=== PATIENT | female | born 1940 | race Caucasian/White ===

== ENCOUNTER 2016-11-14 12:20 | Inpatient (IN) | payer MEDICARE, OTHER ==
[~2016-11-14] VITALS: Ht 165.1 cm; Wt 75.7 kg
[2016-11-14 12:58] LABS: BASOPHILS # (AUTO) 0.1 /CMM (0.0-0.2); BASOPHILS % (AUTO) 0.5 % (0.0-2.0); EOSINOPHILS # (AUTO) 0.3 /CMM (0.0-0.7); EOSINOPHILS % (AUTO) 2.3 % (0.0-6.0); HEMATOCRIT 38 % (33-45); HEMOGLOBIN 12.9 g/dL (11.5-14.8); LYMPHOCYTES # (AUTO) 1.9 /CMM (0.8-4.8); LYMPHOCYTES % (AUTO) 16.4 % (20.0-44.0); MEAN CORPUSCULAR HEMOGLOBIN 31 PG (26.0-33.0); MEAN CORPUSCULAR HGB CONC 34 g/dl (31.0-36.0); MEAN CORPUSCULAR VOLUME 92 fL (82-100); MONOCYTES # (AUTO) 0.6 /CMM (0.1-1.30); MONOCYTES % (AUTO) 5.7 % (2.0-12.0); NEUTROPHILS # (AUTO) 8.4 /CMM (1.8-8.9); NEUTROPHILS % (AUTO) 75.1 % (43.0-81.0); PLATELET COUNT (AUTO) 334 /CMM (150-450); RDW COEFFICIENT OF VARIATION 12.9 (11.5-15.0); RED BLOOD CELL COUNT(AUTO) 4.12 MIL/uL (4.0-5.2); WHITE BLOOD COUNT (AUTO) 11.3 K/uL (4.3-11.0)
[2016-11-14 13:01] LABS: APPEARANCE,URINE CLEAR (CLEAR); BILIRUBIN,URINE NEGATIVE (NEGATIVE); BLOOD, URINE NEGATIVE Ery/uL (NEGATIVE); COLOR,URINE YELLOW (YELLOW); KETONES,URINE NEGATIVE (NEGATIVE); LEUKOCYTE ESTERASE ,URINE NEGATIVE (NEGATIVE); NITRITE, URINE NEGATIVE (NEGATIVE); PROTEIN,URINE NEGATIVE (NEGATIVE); UGLUCOSE NEGATIVE (NEGATIVE); UROBILINOGEN,URINE 0.2 EU/dL (0.2)
[2016-11-14 13:08] LABS: CALCIUM, SERUM 8.6 mg/dL (8.5-10.1); CARBON DIOXIDE 25 mmol/L (21-32); CHLORIDE 104 mmol/L (98-107); CREATININE 1.8 mg/dL (0.6-1.3); GLUCOSE 99 mg/dL (74-106); SODIUM SERUM 139 mmol/L (136-145); UREA NITROGEN, BLOOD 45 mg/dL (7-18)
[2016-11-14 13:11] LABS: ALCOHOL, BLOOD < 3 mg/dL (0-0)
--- NOTE | 2016-11-14 14:40 | NUR ---
RN RECEIVED PT FORM ER, AO X4 VS STABLE PT IS DENYING SI/HI/AVH, PT REFUSING SKIN ASSESSMENT, NOTICED R KNEE SCABS NOTED PT REFUSED PHOTO, PT IS IN THE [place] ROOM UNDER SUPERVISION, PT DENIES ANY PAIN OR DISCOMFORT AT THIS TIME, WILL ASSESS PT AND MEET PT NEEDS.
--- NOTE | 2016-11-14 15:06 | NUR ---
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
[2016-11-14] MEDS ORDERED: ESCI5TAB PO (15:47)
[2016-11-14] MEDS ORDERED: LURA40TA PO (15:47)
[2016-11-14] MEDS ORDERED: TRAZ-144 PO (15:47)
[2016-11-14 16:00] VITALS: BP 137/80
[2016-11-14] MEDS ORDERED: MAG HYDROX/AL HYDROX/SIMETH 30 ML UDC PO PRN (16:00)
[2016-11-14] MEDS ORDERED: MAGNESIUM HYDROXIDE 30 ML UDC PO PRN (16:00)
--- NOTE | 2016-11-14 17:19 | NUR ---
RN Dr. Douglas and Mike schroeder aware of pt admition no new orders, pt complain is unable to sleep at nights.
--- NOTE | 2016-11-14 18:50 | NUR ---
CUSTOMER SERVICE SALES CONSULTANT PAGED DR. HERNANDEZ 2ND TIME AWAITING FOR CALL BACK WILL ENDORSE TO PM NURSE TO FOLLOW UP REGARDING ORDERS FOR ADMITION
[2016-11-14] MEDS ORDERED: GUAIFENESIN/D-METHORPHAN HB 5 ML UDC PO PRN (21:00)
[2016-11-14] MEDS: TEMAZEPAM 7.5 MG CAPSULE PO PRN (21:00)
--- NOTE | 2016-11-14 21:00 | NUR ---
GPS RN NOTE: PATIENT WAS UPSET AND DEMANDING ABOUT HER MEDICATIONS. PATIENT ALSO C/O NOT GETTING SLEEP FOR THE LAST 2 DAYS. PATIENT WAS REQUESTING RESTORIL 60MG,TRAZODONE 100MG, COUGH MEDICATIONS, VITAMIN C AND MULTIVITAMIN. EXPLAINED TO THE PATIENT THAT THE RESTORIL ORDER IS 7.5MG AND SHE NEEDS TO BE SEEN BY HER PSYCHIATRIST FIRST AND SIGNED A CONSENT BEFORE GETTING HER PSYCHOTROPICS. NOTIFIED DR. CESAR WITH ORDERS OF VITAMIN C, MULTIVITAMIN AND COUGH MEDICINE GIVEN NOTED AND CARRIED OUT. NOTIFIED THE PATIENT ABOUT HER REQUEST OF COUGH MEDICINE, VIT AND MVT IS BEING GRANTED BY THE MD AND THE PATIENT DENIES REQUESTING COUGH MEDICINE. PATIENT NOTED TO BE MANIPULATIVE AND FOCUSED ON THE MEDICATIONS. REDIRECTED THE PATIENT. EXPLANATION PROVIDED TO THE PATIENT. WILL CONTINUE TO MONITOR [id number] FOR SAFETY
[2016-11-14 21:49] VITALS: BP 149/85
[2016-11-14] MEDS: clonazePAM 0.5 MG TABLET PO PRN (22:03)
[2016-11-14] MEDS: ACETAMINOPHEN 325 MG TABLET PO PRN (22:04)
[2016-11-14] MEDS ORDERED: hydrALAZINE HCL 25 MG TABLET PO PRN (23:30)
[2016-11-15] MEDS ORDERED: DONE10TA44 (05:30)
[2016-11-15] MEDS ORDERED: SIMV40TA5 (05:30)
[2016-11-15] MEDS ORDERED: CARV3.122 (05:30)
[2016-11-15] MEDS ORDERED: AMLO10TA2 (05:30)
[2016-11-15] MEDS ORDERED: SOLI10TA (05:30)
[2016-11-15 08:00] VITALS: BP 141/98
[2016-11-15] MEDS ORDERED: SOLIFENACIN SUCCINATE 5 MG TABLET PO SCH (09:00)
[2016-11-15] MEDS ORDERED: SIMVASTATIN 40 MG TABLET PO SCH (09:00)
[2016-11-15] MEDS: ASCORBIC ACID 500 MG TABLET PO SCH (09:04)
[2016-11-15] MEDS: MULTIVITAMINS,THERAGRAN 1 UDTAB TABLET PO SCH (09:04)
[2016-11-15] MEDS: AMLODIPINE BESYLATE 10 MG TABLET PO SCH (09:26)
[2016-11-15] MEDS: CARVEDILOL 3.125 MG TABLET PO SCH ×2 (09:30→17:17)
[2016-11-15 16:00] VITALS: BP 132/72
[2016-11-15] MEDS: OXYBUTYNIN CHLORIDE 5 MG TABLET PO SCH (17:17)
[2016-11-15] MEDS: TRAZODONE 50 MG TABLET PO SCH (17:38)
[2016-11-15] MEDS: QUETIAPINE FUMARATE 25 MG TABLET PO SCH (17:38)
[2016-11-15] MEDS: ESCITALOPRAM OXALATE (10 MG) 10 MG TABLET PO SCH (18:35)
[2016-11-15 20:00] VITALS: BP 148/80
[2016-11-15] MEDS: SIMVASTATIN 20 MG TABLET PO SCH (21:14)
[2016-11-15] MEDS: MUPIROCIN OINT 2% 22 GM TUBE SCH (21:16)
[2016-11-15] MEDS ORDERED: SIMVASTATIN 10 MG TABLET PO SCH (22:00)
[2016-11-16 08:00] VITALS: BP 111/60
[2016-11-16] MEDS: CARVEDILOL 3.125 MG TABLET PO SCH ×2 (09:00→17:09)
[2016-11-16] MEDS: AMLODIPINE BESYLATE 10 MG TABLET PO SCH (09:00)
[2016-11-16] MEDS: MUPIROCIN OINT 2% 22 GM TUBE SCH ×2 (09:22→21:40)
[2016-11-16] MEDS: OXYBUTYNIN CHLORIDE 5 MG TABLET PO SCH ×2 (09:23→17:09)
[2016-11-16] MEDS: MULTIVITAMINS,THERAGRAN 1 UDTAB TABLET PO SCH (09:24)
[2016-11-16] MEDS: QUETIAPINE FUMARATE 25 MG TABLET PO SCH ×3 (09:24→21:40)
[2016-11-16] MEDS: ASCORBIC ACID 500 MG TABLET PO SCH (09:24)
[2016-11-16] MEDS: ESCITALOPRAM OXALATE (10 MG) 10 MG TABLET PO SCH (09:24)
--- NOTE | 2016-11-16 15:48 | NUR ---
Initial discharge plan: Pt. reportedly is a resident at a prison [address] [address]. Unable to verify that information at this time, but it was reported by SABRINA from [facility] intake department that pt. is a member of [facility] [phone]. DEVIN will follow up with Farnaz on Saturday and will update. DEVIN will discuss the case with the psychiatrist and will help form safe and proper discharge.
[2016-11-16 16:00] VITALS: BP 127/70
[2016-11-16] MEDS: TRAZODONE 50 MG TABLET PO SCH (17:09)
--- NOTE | 2016-11-16 19:15 | NUR ---
RN NOTES RECEIVED PATIENT IN THE ACTIVITY ROOM. A/O X2. NO SIGNS OF DISTRESS OR DISCOMFORT. BREATHING EVEN AND UNLABORED. DISORGANIZED AND DEMANDING. DENIES SI OR HI. AT THIS TIME. PT.ON ISOLATION FOR MRSA NARES. REFUSES TO PUT ON MASK WHILE IN ACTIVITY ROOM. WILL CONTINUE TO MONITOR Q 15MIN FOR SAFETY AND BEHAVIOR.
[2016-11-16 20:51] VITALS: BP 123/70
[2016-11-16] MEDS: SIMVASTATIN 20 MG TABLET PO SCH (21:40)
[2016-11-16] MEDS: ACETAMINOPHEN 325 MG TABLET PO PRN (21:52)
[2016-11-16] MEDS: TEMAZEPAM 7.5 MG CAPSULE PO PRN (21:53)
--- NOTE | 2016-11-16 21:53 | NUR ---
RN NOTES ADMINISTERED RESTORIL 7.5 MG ORDERED FOR INSOMNIA AT PATIENT REQUEST AND TYLENOL 650 MG ORDERED FOR PAIN IN HAND. WILL CONTINUE TO MONITOR.
--- NOTE | 2016-11-17 07:00 | NUR ---
RN NOTES PATIENT RESTING IN BED. NO SIGNS OF DISTRESS OR DISCOMFORT. NO SIGNIFICANT CHANGES THROUGH THE NIGHT. WILL ENDORSE TO AM SHIFT THEA.
[2016-11-17] MEDS: OXYBUTYNIN CHLORIDE 5 MG TABLET PO SCH ×2 (08:37→16:18)
[2016-11-17] MEDS: QUETIAPINE FUMARATE 25 MG TABLET PO SCH ×3 (08:38→21:16)
[2016-11-17] MEDS: MULTIVITAMINS,THERAGRAN 1 UDTAB TABLET PO SCH (08:38)
[2016-11-17] MEDS: ESCITALOPRAM OXALATE (10 MG) 10 MG TABLET PO SCH (08:38)
[2016-11-17] MEDS: ASCORBIC ACID 500 MG TABLET PO SCH (08:38)
[2016-11-17] MEDS: AMLODIPINE BESYLATE 10 MG TABLET PO SCH (08:46)
[2016-11-17] MEDS: MUPIROCIN OINT 2% 22 GM TUBE SCH ×2 (08:46→21:16)
[2016-11-17] MEDS: CARVEDILOL 3.125 MG TABLET PO SCH ×2 (08:46→16:19)
[2016-11-17 15:43] LABS: APPEARANCE,URINE CLEAR (CLEAR); BILIRUBIN,URINE NEGATIVE (NEGATIVE); BLOOD, URINE NEGATIVE Ery/uL (NEGATIVE); COLOR,URINE YELLOW (YELLOW); KETONES,URINE NEGATIVE (NEGATIVE); LEUKOCYTE ESTERASE ,URINE NEGATIVE (NEGATIVE); NITRITE, URINE NEGATIVE (NEGATIVE); PROTEIN,URINE NEGATIVE (NEGATIVE); UGLUCOSE NEGATIVE (NEGATIVE); UROBILINOGEN,URINE 0.2 EU/dL (0.2)
[2016-11-17 15:53] LABS: URINE TOTAL PROTEIN 6.4 mg/dL (0-11.9)
[2016-11-17 16:00] VITALS: BP 130/76
[2016-11-17 17:30] LABS: EOSINOPHIL,URINE None Seen
[2016-11-17] MEDS: TRAZODONE 50 MG TABLET PO SCH (17:33)
[2016-11-17 20:00] VITALS: BP 111/61
[2016-11-17] MEDS: SIMVASTATIN 20 MG TABLET PO SCH (21:16)
[2016-11-17] MEDS: TEMAZEPAM 7.5 MG CAPSULE PO PRN (21:17)
[2016-11-18 08:00] VITALS: BP 141/78
[2016-11-18] MEDS: MULTIVITAMINS,THERAGRAN 1 UDTAB TABLET PO SCH (08:34)
[2016-11-18] MEDS: QUETIAPINE FUMARATE 25 MG TABLET PO SCH ×3 (08:34→21:16)
[2016-11-18] MEDS: OXYBUTYNIN CHLORIDE 5 MG TABLET PO SCH ×2 (08:34→16:43)
[2016-11-18] MEDS: AMLODIPINE BESYLATE 10 MG TABLET PO SCH (08:34)
[2016-11-18] MEDS: ASCORBIC ACID 500 MG TABLET PO SCH (08:34)
[2016-11-18] MEDS: CARVEDILOL 3.125 MG TABLET PO SCH ×2 (08:34→16:43)
[2016-11-18] MEDS: ESCITALOPRAM OXALATE (10 MG) 10 MG TABLET PO SCH (08:34)
[2016-11-18] MEDS: MUPIROCIN OINT 2% 22 GM TUBE SCH ×2 (08:35→21:15)
[2016-11-18 11:29] LABS: BASOPHILS % (AUTO) 0.5 % (0.0-2.0); EOSINOPHILS # (AUTO) 0.4 /CMM (0.0-0.7); EOSINOPHILS % (AUTO) 4.5 % (0.0-6.0); HEMATOCRIT 37 % (33-45); HEMOGLOBIN 12.6 g/dL (11.5-14.8); LYMPHOCYTES # (AUTO) 1.5 /CMM (0.8-4.8); LYMPHOCYTES % (AUTO) 18.9 % (20.0-44.0); MEAN CORPUSCULAR HEMOGLOBIN 32 PG (26.0-33.0); MEAN CORPUSCULAR HGB CONC 34 g/dl (31.0-36.0); MEAN CORPUSCULAR VOLUME 93 fL (82-100); MONOCYTES # (AUTO) 0.8 /CMM (0.1-1.30); MONOCYTES % (AUTO) 9.6 % (2.0-12.0); NEUTROPHILS # (AUTO) 5.3 /CMM (1.8-8.9); NEUTROPHILS % (AUTO) 66.5 % (43.0-81.0); PLATELET COUNT (AUTO) 279 /CMM (150-450); RDW COEFFICIENT OF VARIATION 13.6 (11.5-15.0); RED BLOOD CELL COUNT(AUTO) 3.95 MIL/uL (4.0-5.2); WHITE BLOOD COUNT (AUTO) 7.9 K/uL (4.3-11.0)
[2016-11-18 11:59] LABS: ALANINE AMINOTRANSFERASE 24 U/L (12-78); ALBUMIN 3.5 g/dL (3.4-5.0); ALKALINE PHOSPHATASE 65 U/L (46-116); ASPARTATE AMINOTRANSFERASE 22 U/L (15-37); BILIRUBIN,TOTAL 0.3 mg/dL (0.2-1.0); CALCIUM, SERUM 8.5 mg/dL (8.5-10.1); CARBON DIOXIDE 28 mmol/L (21-32); CHLORIDE 104 mmol/L (98-107); CREATININE 1.4 mg/dL (0.6-1.3); GLUCOSE 97 mg/dL (74-106); MAGNESIUM 2.2 mg/dL (1.8-2.4); PHOSPHORUS 4.7 mg/dL (2.5-4.9); POTASSIUM 5.2 mmol/L (3.5-5.1); SODIUM SERUM 137 mmol/L (136-145); UREA NITROGEN, BLOOD 41 mg/dL (7-18)
[2016-11-18 12:01] LABS: CREATINE KINASE, TOTAL 184 U/L (26-192)
[2016-11-18 16:00] VITALS: BP 123/74
[2016-11-18] MEDS ORDERED: BOOST PLUS FOOD-VANILLA 237 ML BOX PO SCH (17:00)
[2016-11-18] MEDS: TRAZODONE 50 MG TABLET PO SCH (17:14)
[2016-11-18 20:06] VITALS: BP 109/86
[2016-11-18] MEDS: SIMVASTATIN 20 MG TABLET PO SCH (21:16)
[2016-11-18] MEDS: TEMAZEPAM 7.5 MG CAPSULE PO PRN (21:52)
--- NOTE | 2016-11-19 06:29 | NUR ---
RN GPS NOTES PATIENT RESTING HER BED,EASILY GETS AGITED , NO ACUTE DISTRESS NOTED ,NO CHANGES IN STATUS. ALL NEEDS ATTENDED ANTICIPATED . WILL ENDORSE TO NEXT SHIFT FOR CONTINUITY CARE
--- NOTE | 2016-11-19 06:51 | NUR ---
RN GPS NOTES PT. REFUSED AM LABS , ENCOURAGED FOR AM LABS STILL REFUSED, EXPLAINED RISKS / BENEFITS, ENDORSE TO NEXT SHIFT FOR CONTINUTY OF CARE .
[2016-11-19 08:00] VITALS: BP 131/83
[2016-11-19] MEDS: MULTIVITAMINS,THERAGRAN 1 UDTAB TABLET PO SCH (09:11)
[2016-11-19] MEDS: AMLODIPINE BESYLATE 10 MG TABLET PO SCH (09:11)
[2016-11-19] MEDS: OXYBUTYNIN CHLORIDE 5 MG TABLET PO SCH ×2 (09:11→16:56)
[2016-11-19] MEDS: ESCITALOPRAM OXALATE (10 MG) 10 MG TABLET PO SCH (09:11)
[2016-11-19] MEDS: ASCORBIC ACID 500 MG TABLET PO SCH (09:11)
[2016-11-19] MEDS: MUPIROCIN OINT 2% 22 GM TUBE SCH ×2 (09:11→21:32)
[2016-11-19] MEDS: CARVEDILOL 3.125 MG TABLET PO SCH ×2 (09:11→16:56)
[2016-11-19 09:18] LABS: BASOPHILS % (AUTO) 0.4 % (0.0-2.0); EOSINOPHILS # (AUTO) 0.4 /CMM (0.0-0.7); EOSINOPHILS % (AUTO) 4.5 % (0.0-6.0); HEMATOCRIT 38 % (33-45); HEMOGLOBIN 12.9 g/dL (11.5-14.8); LYMPHOCYTES # (AUTO) 1.8 /CMM (0.8-4.8); LYMPHOCYTES % (AUTO) 18.5 % (20.0-44.0); MEAN CORPUSCULAR HEMOGLOBIN 31 PG (26.0-33.0); MEAN CORPUSCULAR HGB CONC 34 g/dl (31.0-36.0); MEAN CORPUSCULAR VOLUME 93 fL (82-100); MONOCYTES % (AUTO) 10.1 % (2.0-12.0); NEUTROPHILS # (AUTO) 6.4 /CMM (1.8-8.9); NEUTROPHILS % (AUTO) 66.5 % (43.0-81.0); PLATELET COUNT (AUTO) 309 /CMM (150-450); RDW COEFFICIENT OF VARIATION 13.5 (11.5-15.0); RED BLOOD CELL COUNT(AUTO) 4.11 MIL/uL (4.0-5.2); WHITE BLOOD COUNT (AUTO) 9.6 K/uL (4.3-11.0)
[2016-11-19] MEDS: ACETAMINOPHEN 325 MG TABLET PO PRN (09:36)
[2016-11-19] MEDS: QUETIAPINE FUMARATE 25 MG TABLET PO SCH ×3 (09:36→21:24)
[2016-11-19] MEDS: BOOST PLUS FOOD-VANILLA 237 ML BOX PO SCH (09:37)
[2016-11-19 09:39] LABS: ALANINE AMINOTRANSFERASE 24 U/L (12-78); ALBUMIN 3.8 g/dL (3.4-5.0); ALKALINE PHOSPHATASE 71 U/L (46-116); ASPARTATE AMINOTRANSFERASE 20 U/L (15-37); BILIRUBIN,TOTAL 0.3 mg/dL (0.2-1.0); CALCIUM, SERUM 8.6 mg/dL (8.5-10.1); CARBON DIOXIDE 27 mmol/L (21-32); CHLORIDE 102 mmol/L (98-107); CREATININE 1.6 mg/dL (0.6-1.3); GLUCOSE 94 mg/dL (74-106); MAGNESIUM 2.2 mg/dL (1.8-2.4); PHOSPHORUS 4.3 mg/dL (2.5-4.9); POTASSIUM 4.6 mmol/L (3.5-5.1); SODIUM SERUM 136 mmol/L (136-145); TOTAL PROTEIN, SERUM 7.4 g/dL (6.4-8.2); UREA NITROGEN, BLOOD 45 mg/dL (7-18)
[2016-11-19 16:00] VITALS: BP 101/58
[2016-11-19] MEDS: TRAZODONE 50 MG TABLET PO SCH (17:16)
--- NOTE | 2016-11-19 17:30 | NUR ---
GPS/RN DR HERNANDEZ AWARE OF BUN OF 45 AND CR OF 1.6, NO NEW ORDERS AT THIS TIME
[2016-11-19 20:00] VITALS: BP 127/72
[2016-11-19] MEDS: SIMVASTATIN 20 MG TABLET PO SCH (21:24)
[2016-11-19] MEDS: clonazePAM 0.5 MG TABLET PO PRN (21:59)
[2016-11-19] MEDS: TEMAZEPAM 7.5 MG CAPSULE PO PRN (23:43)
[2016-11-20 08:10] LABS: *SPE A/G RATIO 1.3 (0.7-1.7); *SPE ALBUMIN 3.6 g/dL (2.9-4.4); *SPE ALPHA-1-GLOBULIN 0.2 g/dL (0.0-0.4); *SPE ALPHA-2-GLOBULIN 0.6 g/dL (0.4-1.0); *SPE BETA GLOBULIN 0.9 g/dL (0.7-1.3); *SPE GLOBULIN, TOTAL 2.8 g/dL (2.2-3.9); *SPE M-SPIKE Not Observed g/dL (Not Observed); *SPE PROTEIN TOTAL 6.4 g/dL (6.0-8.5)
[2016-11-20 08:25] VITALS: BP 128/62
[2016-11-20] MEDS: MUPIROCIN OINT 2% 22 GM TUBE SCH ×2 (09:41→21:34)
[2016-11-20] MEDS: BOOST PLUS FOOD-VANILLA 237 ML BOX PO SCH (09:42)
[2016-11-20] MEDS: ESCITALOPRAM OXALATE (10 MG) 10 MG TABLET PO SCH (12:11)
[2016-11-20] MEDS: OXYBUTYNIN CHLORIDE 5 MG TABLET PO SCH ×2 (12:11→16:34)
[2016-11-20] MEDS: AMLODIPINE BESYLATE 10 MG TABLET PO SCH (12:12)
[2016-11-20] MEDS: CARVEDILOL 3.125 MG TABLET PO SCH ×2 (12:12→16:34)
[2016-11-20] MEDS: MULTIVITAMINS,THERAGRAN 1 UDTAB TABLET PO SCH (12:12)
[2016-11-20] MEDS: ASCORBIC ACID 500 MG TABLET PO SCH (12:12)
[2016-11-20] MEDS: QUETIAPINE FUMARATE 25 MG TABLET PO SCH ×3 (12:12→21:36)
[2016-11-20 12:16] LABS: PTH, INTACT 37 pg/mL (15-65)
[2016-11-20 16:06] VITALS: BP 121/63
[2016-11-20 16:07] VITALS: BP 121/63
[2016-11-20] MEDS: TRAZODONE 50 MG TABLET PO SCH (16:33)
[2016-11-20 20:06] VITALS: BP 99/53
[2016-11-20] MEDS: SIMVASTATIN 20 MG TABLET PO SCH (21:36)
[2016-11-20] MEDS: TEMAZEPAM 7.5 MG CAPSULE PO PRN (21:37)
[2016-11-21 08:11] VITALS: BP 123/69
[2016-11-21] MEDS: ESCITALOPRAM OXALATE (10 MG) 10 MG TABLET PO SCH (08:32)
[2016-11-21] MEDS: MUPIROCIN OINT 2% 22 GM TUBE SCH ×2 (08:32→21:20)
[2016-11-21] MEDS: BOOST PLUS FOOD-VANILLA 237 ML BOX PO SCH (08:32)
[2016-11-21] MEDS: OXYBUTYNIN CHLORIDE 5 MG TABLET PO SCH ×2 (08:32→16:52)
[2016-11-21] MEDS: MULTIVITAMINS,THERAGRAN 1 UDTAB TABLET PO SCH (08:32)
[2016-11-21] MEDS: AMLODIPINE BESYLATE 10 MG TABLET PO SCH (08:32)
[2016-11-21] MEDS: QUETIAPINE FUMARATE 25 MG TABLET PO SCH ×3 (08:33→21:20)
[2016-11-21] MEDS: ASCORBIC ACID 500 MG TABLET PO SCH (08:33)
[2016-11-21] MEDS: CARVEDILOL 3.125 MG TABLET PO SCH ×2 (08:33→16:51)
[2016-11-21 16:21] VITALS: BP 116/64
[2016-11-21] MEDS: TRAZODONE 50 MG TABLET PO SCH (17:00)
--- NOTE | 2016-11-21 19:24 | NUR ---
GPS RN NOTE, RECEIVED PATIENT AWAKE AND IN BED, NO S/S OR COMPLAINTS OF PAIN AT THIS TIME. PATIENT IS DISPLAYING NO S/S OF APPARENT DISTRESS AT THIS TIME. PATIENT BREATHING IS UNLABORED WITH EQUAL RISE AND FALL OF THE CHEST. PATIENT IS ALERT AND ORIENTED X 2-3 ON ROOM AIR WITH A SPO2 96%. PATIENT IS ON ISOLATION FOR MRSA STRICT ISOLATION PRECAUTIONS UPHELD. PATIENT COMPLAINT SELECTIVE WITH MEDICATION, ANXIOUS, COOPERATIVE, GUARDED, SUSPICIOUS, AND NEEDS REORIENTATION. PATIENT DENIES SUICIDE AND HOMICIDAL IDEATIONS AT THIS TIME. PATIENT ASSISTED WITH TURNING AND REPOSITIONING Q2HR AND PRN FOR COMFORT AND CIRCULATION. PATIENT HAS NO NEEDS AT THIS TIME. PATIENT EDUCATED ON THE USE OF THE CALL WHITE. PATIENT BED SIDE RAILS UP X2 FOR SAFETY, BED IS LOCKED AND LOW WILL CONTINUE TO MONITOR AND MAINTAIN SAFETY.
[2016-11-21 20:05] VITALS: BP 142/73
[2016-11-21] MEDS: ACETAMINOPHEN 325 MG TABLET PO PRN (21:20)
[2016-11-21] MEDS: SIMVASTATIN 20 MG TABLET PO SCH (21:20)
[2016-11-21] MEDS: TEMAZEPAM 7.5 MG CAPSULE PO PRN (21:20)
--- NOTE | 2016-11-21 21:20 | NUR ---
GPS RN NOTE, GPS RN NOTE PATIENT HAS A COMPLAINT OF NOT BEING ABLE TO SLEEP AND WOULD LIKE A SLEEPING AID AT THIS TIME. PATIENT VITAL SIGNS ARE STABLE. GAVE RESTORIL 7.5MG PO HS ORDERED. WILL REASSESS FOR INSOMNIA AND I WILL CONTINUE TO MONITOR THIS PATIENT.
--- NOTE | 2016-11-21 21:20 | NUR ---
GPS RN NOTE, PATIENT HAS A COMPLAINT OF A HEADACHE AT 2 OUT 10 ON THE PAIN SCALE AND WOULD LIKE MEDICATION AT THIS TIME. PATIENT VITAL SIGNS ARE STABLE. GAVE TYLENOL 650MG PO Q6HR PRN ORDERED. WILL REASSESS FOR PAIN AND I WILL CONTINUE TO MONITOR THIS PATIENT.
[2016-11-22 08:00] VITALS: BP 113/65
[2016-11-22] MEDS: BOOST PLUS FOOD-VANILLA 237 ML BOX PO SCH (08:52)
[2016-11-22] MEDS: ASCORBIC ACID 500 MG TABLET PO SCH (08:53)
[2016-11-22] MEDS: MULTIVITAMINS,THERAGRAN 1 UDTAB TABLET PO SCH (08:53)
[2016-11-22] MEDS: OXYBUTYNIN CHLORIDE 5 MG TABLET PO SCH ×2 (08:53→17:06)
[2016-11-22] MEDS: QUETIAPINE FUMARATE 25 MG TABLET PO SCH ×3 (08:53→21:17)
[2016-11-22] MEDS: ESCITALOPRAM OXALATE (10 MG) 10 MG TABLET PO SCH (08:53)
[2016-11-22] MEDS: MUPIROCIN OINT 2% 22 GM TUBE SCH ×2 (08:57→20:32)
[2016-11-22] MEDS: AMLODIPINE BESYLATE 10 MG TABLET PO SCH (09:00)
[2016-11-22] MEDS: CARVEDILOL 3.125 MG TABLET PO SCH ×2 (09:00→17:07)
--- NOTE | 2016-11-22 15:09 | NUR ---
SW spoke with the patient and pt. insists that the home she lives in is her apartment that she is renting with other people. She states that it is under her name and she wants to be discharged there. Pt. is alert and oriented.
[2016-11-22 16:01] VITALS: BP 129/65
[2016-11-22] MEDS: TRAZODONE 50 MG TABLET PO SCH (18:03)
[2016-11-22] MEDS: SIMVASTATIN 20 MG TABLET PO SCH (21:17)
[2016-11-23 02:12] VITALS: BP 130/71
[2016-11-23 08:00] VITALS: BP 148/82
[2016-11-23] MEDS: CARVEDILOL 3.125 MG TABLET PO SCH ×2 (09:11→16:38)
[2016-11-23] MEDS: ASCORBIC ACID 500 MG TABLET PO SCH (09:11)
[2016-11-23] MEDS: ESCITALOPRAM OXALATE (10 MG) 10 MG TABLET PO SCH (09:11)
[2016-11-23] MEDS: OXYBUTYNIN CHLORIDE 5 MG TABLET PO SCH ×2 (09:11→16:39)
[2016-11-23] MEDS: MULTIVITAMINS,THERAGRAN 1 UDTAB TABLET PO SCH (09:11)
[2016-11-23] MEDS: QUETIAPINE FUMARATE 25 MG TABLET PO SCH ×3 (09:11→21:20)
[2016-11-23] MEDS: AMLODIPINE BESYLATE 10 MG TABLET PO SCH (09:12)
[2016-11-23] MEDS: MUPIROCIN OINT 2% 22 GM TUBE SCH (09:15)
[2016-11-23] MEDS: BOOST PLUS FOOD-VANILLA 237 ML BOX PO SCH (09:40)
--- NOTE | 2016-11-23 13:12 | NUR ---
SENIOR QUALITY ASSURANCE ENGINEER-NOTES DR. LEOS SEEN THE PATIENT WITH VERBAL ORDER TO D/C ISOLATION AND D/C BACTROBAN. MRSA COLONIZED. NOTED AND CARRIED OUT.
[2016-11-23 15:59] VITALS: BP 130/77
[2016-11-23] MEDS: TRAZODONE 50 MG TABLET PO SCH (17:12)
[2016-11-23 20:00] VITALS: BP 102/62
[2016-11-23] MEDS: SIMVASTATIN 20 MG TABLET PO SCH (21:19)
[2016-11-23] MEDS: TEMAZEPAM 7.5 MG CAPSULE PO PRN (21:56)
--- NOTE | 2016-11-24 06:31 | NUR ---
RN GPS NOTES PATIENT RESTING HER BED, DENIES SI/HI AT THIS TIME , NO ACUTE DISTRESS NOTED ,NO CHANGES IN STATUS. ALL NEEDS ATTENDED ANTICIPATED . WILL ENDORSE TO NEXT SHIFT FOR CONTINUITY CARE
[2016-11-24 08:00] VITALS: BP 123/85
[2016-11-24] MEDS: CARVEDILOL 3.125 MG TABLET PO SCH ×2 (08:52→16:47)
[2016-11-24] MEDS: MULTIVITAMINS,THERAGRAN 1 UDTAB TABLET PO SCH (08:52)
[2016-11-24] MEDS: QUETIAPINE FUMARATE 25 MG TABLET PO SCH ×3 (08:52→22:23)
[2016-11-24] MEDS: ESCITALOPRAM OXALATE (10 MG) 10 MG TABLET PO SCH (08:53)
[2016-11-24] MEDS: AMLODIPINE BESYLATE 10 MG TABLET PO SCH (08:53)
[2016-11-24] MEDS: ASCORBIC ACID 500 MG TABLET PO SCH (08:53)
[2016-11-24] MEDS: BOOST PLUS FOOD-VANILLA 237 ML BOX PO SCH (08:53)
[2016-11-24] MEDS: OXYBUTYNIN CHLORIDE 5 MG TABLET PO SCH ×2 (08:53→16:46)
[2016-11-24 16:00] VITALS: BP 120/60
[2016-11-24] MEDS: TRAZODONE 50 MG TABLET PO SCH (17:00)
[2016-11-24 20:00] VITALS: BP 113/54
--- NOTE | 2016-11-24 20:00 | NUR ---
RN INITIAL NOTES: PT IN BED, A/O X2-3, PT IS CALM AT THIS TIME, BUT REFUSES TO ENGAGED IN CONVERSATION, HARD TO REDIRECT, PT IS DISORGANIZED, FORGETFUL, EASILY AGITATED, PT IS MED COMPLIANT, WILL CONTINUE TO MONITOR PT FOR SAFETY [id number] AND FOR ANY CHANGES IN BEHAVIOR
[2016-11-24] MEDS: SIMVASTATIN 20 MG TABLET PO SCH (22:23)
--- NOTE | 2016-11-25 | NUR ---
RN NOTES: SEEN PT SLEEPING AT THIS TIME, APPEARS COMFORTABLE
--- NOTE | 2016-11-25 01:00 | NUR ---
RN NOTES: PT AWAKE AT THIS TIME, OFFERED SLEEPING PILL, BUT PT REFUSED
[2016-11-25] MEDS: clonazePAM 0.5 MG TABLET PO PRN (02:37)
--- NOTE | 2016-11-25 02:37 | NUR ---
PRN KLONOPIN: PT NOTED TO BE VERY ANXIOUS,AGITATED PRN KLONOPIN 0.5 MG TAB PO ADMINISTERED TO THE PT AT THIS TIME,
--- NOTE | 2016-11-25 06:55 | NUR ---
RN CLOSING NOTES: PT IN BED, AWAKE, A/O X3, CALM AND COOPERATIVE, DENIES ANY PAIN OR DISCOMFORT, VS REMAINS STABLE, DENIES ANY S/I OR H/I, WILL ENDORSE TO DAY RN FOR THEA.
[2016-11-25 08:19] VITALS: BP 131/60
[2016-11-25] MEDS: OXYBUTYNIN CHLORIDE 5 MG TABLET PO SCH ×2 (08:55→17:01)
[2016-11-25] MEDS: ESCITALOPRAM OXALATE (10 MG) 10 MG TABLET PO SCH (08:55)
[2016-11-25] MEDS: QUETIAPINE FUMARATE 25 MG TABLET PO SCH ×3 (08:56→21:36)
[2016-11-25] MEDS: MULTIVITAMINS,THERAGRAN 1 UDTAB TABLET PO SCH (08:56)
[2016-11-25] MEDS: ASCORBIC ACID 500 MG TABLET PO SCH (08:56)
[2016-11-25] MEDS: AMLODIPINE BESYLATE 10 MG TABLET PO SCH (08:57)
[2016-11-25] MEDS: CARVEDILOL 3.125 MG TABLET PO SCH ×2 (08:57→17:00)
[2016-11-25] MEDS: BOOST PLUS FOOD-VANILLA 237 ML BOX PO SCH (08:57)
[2016-11-25 16:00] VITALS: BP 118/52
[2016-11-25] MEDS: TRAZODONE 50 MG TABLET PO SCH (17:01)
[2016-11-25 20:18] VITALS: BP 126/62
[2016-11-25] MEDS: SIMVASTATIN 20 MG TABLET PO SCH (21:36)
--- NOTE | 2016-11-26 01:21 | NUR ---
Pt has been with depressed mood but compliant with care w/o any promptings.
[2016-11-26 08:00] VITALS: BP 116/71
[2016-11-26] MEDS: ESCITALOPRAM OXALATE (10 MG) 10 MG TABLET PO SCH (08:43)
[2016-11-26] MEDS: MULTIVITAMINS,THERAGRAN 1 UDTAB TABLET PO SCH (08:43)
[2016-11-26] MEDS: CARVEDILOL 3.125 MG TABLET PO SCH ×2 (08:44→16:48)
[2016-11-26] MEDS: ASCORBIC ACID 500 MG TABLET PO SCH (08:44)
[2016-11-26] MEDS: AMLODIPINE BESYLATE 10 MG TABLET PO SCH (08:44)
[2016-11-26] MEDS: QUETIAPINE FUMARATE 25 MG TABLET PO SCH ×3 (08:44→21:24)
[2016-11-26] MEDS: OXYBUTYNIN CHLORIDE 5 MG TABLET PO SCH ×2 (08:44→16:48)
[2016-11-26] MEDS: BOOST PLUS FOOD-VANILLA 237 ML BOX PO SCH (08:45)
[2016-11-26 16:01] VITALS: BP 116/67
[2016-11-26] MEDS: TRAZODONE 50 MG TABLET PO SCH (17:37)
[2016-11-26] MEDS: SIMVASTATIN 20 MG TABLET PO SCH (21:24)
[2016-11-26] MEDS: ACETAMINOPHEN 325 MG TABLET PO PRN (21:24)
--- NOTE | 2016-11-26 21:24 | NUR ---
GPS RN NOTE, PATIENT HAS A COMPLAINT OF OF LOWER BACK PAIN AT 3 OUT 10 ON THE PAIN SCALE AND WOULD LIKE MEDICATION AT THIS TIME. PATIENT VITAL SIGNS ARE STABLE. GAVE TYLENOL 650MG PO Q6HR PRN ORDERED. WILL REASSESS PAIN AND I WILL CONTINUE TO ONITOR THIS PATIENT.
[2016-11-26] MEDS: TEMAZEPAM 7.5 MG CAPSULE PO PRN (21:25)
[2016-11-26 22:24] VITALS: BP 114/62
[2016-11-27 08:00] VITALS: BP 135/72
[2016-11-27] MEDS: BOOST PLUS FOOD-VANILLA 237 ML BOX PO SCH (08:46)
[2016-11-27] MEDS: AMLODIPINE BESYLATE 10 MG TABLET PO SCH (08:46)
[2016-11-27] MEDS: ESCITALOPRAM OXALATE (10 MG) 10 MG TABLET PO SCH (08:47)
[2016-11-27] MEDS: MULTIVITAMINS,THERAGRAN 1 UDTAB TABLET PO SCH (08:47)
[2016-11-27] MEDS: OXYBUTYNIN CHLORIDE 5 MG TABLET PO SCH ×2 (08:47→16:58)
[2016-11-27] MEDS: ASCORBIC ACID 500 MG TABLET PO SCH (08:47)
[2016-11-27] MEDS: CARVEDILOL 3.125 MG TABLET PO SCH ×2 (08:48→16:58)
[2016-11-27] MEDS: QUETIAPINE FUMARATE 25 MG TABLET PO SCH ×3 (08:48→20:31)
[2016-11-27 16:02] VITALS: BP 129/69
--- NOTE | 2016-11-27 16:12 | NUR ---
DEVIN spoke with a social service technician from [facility] [phone] who stated that pt. was living in an apartment with several people and it may not be a safe place to return to, but she has no documentation or orders that states she can't return. Myra stated that "our hands are tied" and if pt. wants to return home then we are not able to stop that from happening. DEVIN spoke with the patient again and pt. continues to insist that she wants to return to her apartment and will not agree to go anywhere else. Pt. refused placements to homeless shelters and to other facilities. DEVIN discussed the case with SW director and pt. will stay another day for further stabilization. DEVIN will revisit the issue tomorrow.
[2016-11-27] MEDS: TRAZODONE 50 MG TABLET PO SCH (16:58)
--- NOTE | 2016-11-27 19:29 | NUR ---
GPS/RN OPENING NOTES PATIENT IN THE ROOM, ABLE TO STAND AND WALK, CAN VERBALIZE NEEDS ATTEND TO NEEDS AND PROVIDED ROOM ORIENTATION WILL MONITOR AND PROVIDE CARE.
[2016-11-27 20:00] VITALS: BP 105/64
[2016-11-27 20:17] VITALS: BP 105/64
[2016-11-27] MEDS: SIMVASTATIN 20 MG TABLET PO SCH (20:31)
--- NOTE | 2016-11-27 20:44 | NUR ---
GPS/RN NOTES PATIENT ABLE TO VERBALIZE NEEDS AND HAVE PAIN 4/10 GENERALIZED , TYLENOL 650MG PO WILL BE GIVEN AND REQUEST FOR SLEEP DIFFICULTY RESTORIL 7.5 MG CAP.
[2016-11-27] MEDS: ACETAMINOPHEN 325 MG TABLET PO PRN (20:46)
[2016-11-27] MEDS: TEMAZEPAM 7.5 MG CAPSULE PO PRN (20:46)
[2016-11-28 05:11] VITALS: BP 105/64
--- NOTE | 2016-11-28 06:06 | NUR ---
GPS/RN CLOSING NOTES PATIENT IN BED, ABLE TO SLEEP DURING THE NIGHT. RESPIRATIONS EVEN AND UNLABORED. SKIN WARM TO TOUCH. NO PAIN OBSERVED AND VERBALIZED. ATTEND TO NEEDS AND WILL CONTINUE TO MONITOR. WILL ENDORSE TO AM RN FOR THEA.
[2016-11-28 08:00] VITALS: BP 113/60
[2016-11-28] MEDS: BOOST PLUS FOOD-VANILLA 237 ML BOX PO SCH (08:33)
[2016-11-28] MEDS: MULTIVITAMINS,THERAGRAN 1 UDTAB TABLET PO SCH (08:34)
[2016-11-28] MEDS: OXYBUTYNIN CHLORIDE 5 MG TABLET PO SCH ×2 (08:34→17:27)
[2016-11-28] MEDS: ASCORBIC ACID 500 MG TABLET PO SCH (08:34)
[2016-11-28] MEDS: CARVEDILOL 3.125 MG TABLET PO SCH ×2 (08:34→17:28)
[2016-11-28] MEDS: AMLODIPINE BESYLATE 10 MG TABLET PO SCH (08:34)
[2016-11-28] MEDS: QUETIAPINE FUMARATE 25 MG TABLET PO SCH ×2 (08:35→17:27)
[2016-11-28] MEDS: ESCITALOPRAM OXALATE (10 MG) 10 MG TABLET PO SCH (08:35)
--- NOTE | 2016-11-28 09:10 | NUR ---
MRSA OF SW[facility] NARES #2 TAKEN , CALLED LAB FOR AIRDOX FITTER.
--- NOTE | 2016-11-28 15:19 | NUR ---
Group Notes: "Are you the social worker clinical? You are the social worker clinical right? So when am I going home and did you get the paper proof I asked you for?" (patient requested proof that she is not able to return back home, but since it was only recommended that she shouldn't go home, there was no proof to be provided). Pt. was irritable, with loud voice, also guarded and suspicious. Into the group, about 15 minutes later, pt changed her attitude, was grateful for all information provided and changed her tone of voice. Pt. was provided with information about discharge and where she would be going. SW will follow up with the psychiatrist and will arrange transportation and after care for the patient.
[2016-11-28 16:10] VITALS: BP 119/69
[2016-11-28] MEDS: TRAZODONE 50 MG TABLET PO SCH (17:27)
[2016-11-28] MEDS ORDERED: SALINE NASAL SPRAY 0.65% 1 BOTTLE BOTTLE NS PRN (19:30)
[2016-11-28 20:15] VITALS: BP 127/69
[2016-11-28] MEDS: SIMVASTATIN 20 MG TABLET PO SCH (21:01)
[2016-11-28] MEDS: TEMAZEPAM 7.5 MG CAPSULE PO PRN (21:02)
[2016-11-28] MEDS: ACETAMINOPHEN 325 MG TABLET PO PRN (21:02)
[2016-11-29 06:28] LABS: BASOPHILS # (AUTO) 0.1 /CMM (0.0-0.2); BASOPHILS % (AUTO) 0.6 % (0.0-2.0); EOSINOPHILS # (AUTO) 0.5 /CMM (0.0-0.7); EOSINOPHILS % (AUTO) 5.8 % (0.0-6.0); HEMATOCRIT 38 % (33-45); HEMOGLOBIN 13.1 g/dL (11.5-14.8); MEAN CORPUSCULAR HEMOGLOBIN 32 PG (26.0-33.0); MEAN CORPUSCULAR HGB CONC 35 g/dl (31.0-36.0); MEAN CORPUSCULAR VOLUME 93 fL (82-100); MONOCYTES # (AUTO) 0.9 /CMM (0.1-1.30); MONOCYTES % (AUTO) 10.3 % (2.0-12.0); NEUTROPHILS # (AUTO) 5.3 /CMM (1.8-8.9); NEUTROPHILS % (AUTO) 60.3 % (43.0-81.0); PLATELET COUNT (AUTO) 294 /CMM (150-450); RDW COEFFICIENT OF VARIATION 13.5 (11.5-15.0); RED BLOOD CELL COUNT(AUTO) 4.09 MIL/uL (4.0-5.2); WHITE BLOOD COUNT (AUTO) 8.9 K/uL (4.3-11.0)
[2016-11-29 06:30] LABS: CALCIUM, SERUM 8.8 mg/dL (8.5-10.1); CARBON DIOXIDE 29 mmol/L (21-32); CHLORIDE 103 mmol/L (98-107); CREATININE 1.6 mg/dL (0.6-1.3); GLUCOSE 86 mg/dL (74-106); SODIUM SERUM 140 mmol/L (136-145); UREA NITROGEN, BLOOD 52 mg/dL (7-18)
[2016-11-29 08:00] VITALS: BP 108/58
[2016-11-29] MEDS: BOOST PLUS FOOD-VANILLA 237 ML BOX PO SCH (08:49)
[2016-11-29] MEDS: ASCORBIC ACID 500 MG TABLET PO SCH (08:49)
[2016-11-29] MEDS: QUETIAPINE FUMARATE 25 MG TABLET PO SCH ×2 (08:49→12:13)
[2016-11-29] MEDS: MULTIVITAMINS,THERAGRAN 1 UDTAB TABLET PO SCH (08:49)
[2016-11-29] MEDS: ESCITALOPRAM OXALATE (10 MG) 10 MG TABLET PO SCH (08:49)
[2016-11-29] MEDS: OXYBUTYNIN CHLORIDE 5 MG TABLET PO SCH (08:49)
[2016-11-29] MEDS: AMLODIPINE BESYLATE 10 MG TABLET PO SCH (08:49)
[2016-11-29 08:50] VITALS: BP 108/58
[2016-11-29] MEDS: CARVEDILOL 3.125 MG TABLET PO SCH (08:50)
--- NOTE | 2016-11-29 09:49 | NUR ---
DR. GOEL GAVE AN ORDER TO D/C HOLD AND D/C TODAY. PT. WITHOUT DISTRESS, DENIES SUICIDAL AND HOMICIDAL AND TO FOLLOW UP WITH PSYCH AND MEDICAL DOCTORS.
--- NOTE | 2016-11-29 15:00 | NUR ---
GPS RAILROAD CARMAN NOTE: PATIENT DISCHARGE HOME TO [address] [place] [id number] VIA [facility] CADDYMASTER TO SCAFFOLD WORKER,PT IN STABLE CONDITION NO S/S DISTRESS NOTED PATIENT DENIES SI/HI, DR AMANDO GRIJLAVA PATIENT EMILI FITZGERALD NOTIFIED ORDER TO DC PATIENT HOME WITH CONTINUE MEDICATIONS DC PRNS, PATIENT EDUCATED TO CONTINUE MEDICATIONS AND SEE MD IN 2 WEEKS.PATIENT SKIN INTACT,VSS STABLE ALL BELONGINGS RETURNED TO PATIENT. EXIT CARE DONE PRINTED, SIGN AND GIVEN TO PATIENT.
--- NOTE | 2016-11-29 15:27 | NUR ---
Discharge note: discharged home to [address] [address] via [employer] transportation at 2:00pm. [facility] social work nurse, Myra Fontaine [phone] was notified that the patient will go back and she agreed that it was the only discharge option for the patient. Pt. refused placement and homeless shelters. Pt. was calm, cooperative, denied suicidal/homicidal ideations and hallucinations. Pt. will follow up with a psychiatrist at [facility] within 7 days of discharge at [address] [place] [address] . Discharge paperwork has been signed, discharge instructions were provided to the patient.
== END 2016-11-29 14:50 | disposition home or self-care (01) | DRG 885 ==
LOC: ER 12:21 → GPS 13:40
PROVIDERS: ADMIT Psychiatry & Neurology Psychiatry; ATTEND Psychiatry & Neurology Psychiatry
DX: F33.3 Major depressive disorder, recurrent, severe with psychotic symptoms (principal); N17.0 Acute kidney failure with tubular necrosis; N18.9 Chronic kidney disease, unspecified; E46 Unspecified protein-calorie malnutrition; F03.90 Unspecified dementia, unspecified severity, without behavioral disturbance, psychotic disturbance, mood disturbance, and anxiety; Z88.1 Allergy status to other antibiotic agents; Z73.6 Limitation of activities due to disability; Z88.0 Allergy status to penicillin; I10 Essential (primary) hypertension; E78.5 Hyperlipidemia, unspecified; D63.8 Anemia in other chronic diseases classified elsewhere; D72.829 Elevated white blood cell count, unspecified; E66.01 Morbid (severe) obesity due to excess calories; I25.10 Atherosclerotic heart disease of native coronary artery without angina pectoris; I12.9 Hypertensive chronic kidney disease with stage 1 through stage 4 chronic kidney disease, or unspecified chronic kidney disease
CPT/HCPCS: 36415; 80048-TC; 80053-TC; 80305; 81000-TC; 82550-TC; 82570-TC; 83735-TC; 83970; 84100-TC; 84155; 84155-TC; 84165; 84300-TC; 85025-TC; 87081-TC; A4606; G0480; Z7610